=== PATIENT | female | born 1965 | race Caucasian/White ===

== ENCOUNTER → 2024-11-17 | Outpatient (CLI) | payer MEDICARE, MEDICAID ==
[~2024-11-17] MED LIST: ABILIFY30 MG PO; CATAPRES0.2 M1 PO; CELEXA20 MG PO; CRESTOR40 M1 PO; CYMBALTA60 MG PO; DICLOFENAC SOD50 MG PO; DITROPAN XL10 MG PO; FLOVENT HFA12 GM INH; GABAPENTIN800 MG PO; GLUCOPHAGE1000 MG PO; IRON325 M1 PO; LAMICTAL200 MG PO; LIPITOR20 MG PO; LIPOFEN50 MG PO; MOTRIN800 MG PO; OMEPRAZOLE20 M2 PO; OXYCODONE HCL10 M1 PO; SYNTHROID25 MCG PO; TRAZODONE50 MG PO; VENTOLIN 02.5 MG/3 M INH; VITAMIN B COMP1 EAC1 PO; VITAMIN D35000 UNIT PO; XANAX0.5 MG PO; ZESTRIL10 MG PO
== END | disposition home or self-care (01) ==
LOC: RAD 13:56
PROVIDERS: ATTEND Nurse Practitioner
DX: M47.898 Other spondylosis, sacral and sacrococcygeal region (principal); M47.817 Spondylosis without myelopathy or radiculopathy, lumbosacral region; M53.3 Sacrococcygeal disorders, not elsewhere classified

== ENCOUNTER 2025-02-22 09:34 | Emergency (ER) | payer MEDICARE, MEDICAID ==
[~2025-02-22] VITALS: Ht 152.4 cm; Wt 69.9 kg
[2025-02-22] MEDS ORDERED: SODIUM CHLORIDE 0.9% 1,000 ML IV ONE (10:30)
[2025-02-22] MEDS ORDERED: Ondansetron Hydrochloride 4 MG/2 ML VIAL IV ONE (10:35)
[2025-02-22 10:40] LABS: BASO # 0.0 10*3/uL (0.0-0.1); BASO % 0.4 % (0.0-1.0); EOS # 0.0 10*3/uL (0.0-0.4); EOS % 0.1 % (1.0-4.0); MEAN CELL VOLUME 89.7 fl (81.0-99.0); MEAN CORPUSCULAR HGB 29.5 pg (27.0-31.0); MEAN PLATELET VOLUME 9.7 fl (9.6-12.3); MONO # 0.8 10*3/uL (0.1-1.0); MONO % 8.6 % (3.0-9.0); NEUT # 7.0 10*3/uL (2.3-7.9); NEUT % 77.5 % (47.0-73.0); NUCLEATED RED BLOOD CELL 0.0 % (0.0-0.0); NUCLEATED RED BLOOD CELL 0.0 10*3/uL (0.0-0.0); PLATELET COUNT AUTOMATED 182 10*3/uL (130-400); RED CELL DISTRI WIDTH 13.3 % (0-14.5)
[2025-02-22 11:05] LABS: BUN 12 mg/dl (9-23); SGPT/ALT 60 U/L (5-49)
[2025-02-22 11:16] LABS: BILIRUBIN Negative (Negative); BLOOD Negative (Negative); CLARITY Cloudy (Clear); COLOR Dark Yellow (Yellow); KETONE Trace (Negative); LEUKO ESTERASE 3+ (Negative); NITRITE Negative (Negative); PH 7.0 (4.5-8.0); SPECIFIC GRAVITY >= 1.030 (1.001-1.030); UROBILINOGEN 2.0 E.U./dl (0.0-1.0)
[2025-02-22 11:39] LABS: BACTERIA 1+; RBC 0-2 rbc/hpf (0-2); WBC 31-40 wbc/hpf (0-5)
[2025-02-22] MEDS ORDERED: CIPRO500 MG PO (12:29)
== END 2025-02-22 12:37 | disposition home or self-care (01) ==
LOC: ED 09:34
PROVIDERS: Emergency Medicine
DX: R42 Dizziness and giddiness (principal); N39.0 Urinary tract infection, site not specified; R74.01 Elevation of levels of liver transaminase levels; I10 Essential (primary) hypertension; M19.90 Unspecified osteoarthritis, unspecified site; F41.9 Anxiety disorder, unspecified; F32.A Depression, unspecified; J45.909 Unspecified asthma, uncomplicated; E11.9 Type 2 diabetes mellitus without complications; Z88.5 Allergy status to narcotic agent; Z91.040 Latex allergy status; Z88.2 Allergy status to sulfonamides; Z88.0 Allergy status to penicillin; Z88.6 Allergy status to analgesic agent; Z88.8 Allergy status to other drugs, medicaments and biological substances; Z20.822 Contact with and (suspected) exposure to COVID-19